=== PATIENT | female | born 1965 | race Caucasian/White ===

== ENCOUNTER 2024-02-06 06:46 | Emergency (ER) | payer OTHER, SELFPAY ==
[2024-02-06 06:55] VITALS: BP 121/66
[2024-02-06 08:00] VITALS: BP 118/55
[2024-02-06 08:35] LABS: % Basophils 1.3 % (0-2); % Eosinophils 3.6 % (0-6); % Immature Granulocytes 0.4 % (0-0.5); % Lymphocytes 37.5 % (20.5-51.1); % Monocytes 7.3 % (1.7-9.3); % Neutrophils 49.9 % (42.2-75.2); Absolute Basophils 0.1 10^3/uL (0-0.2); Absolute Eosinophils 0.2 10^3/uL (0-0.7); Absolute Lymphocytes 1.8 10^3/uL (1.2-3.4); Absolute Monocytes 0.3 10^3/uL (0.1-0.6); Absolute Neutrophils 2.3 10^3/uL (1.4-6.5); Hematocrit 38.2 % (37.0-47.0); Hemoglobin 13.1 g/dL (12.0-16.0); Mean Corp Hgb Conc. 34.3 g/dL (33.0-37.0); Mean Corpuscular Hgb 28.2 pg (27.0-31.0); Mean Corpuscular Volume 82.2 fL (81.0-99.0); Nucleated Red Blood Cells % 0 %; Platelet Count 271 10^3/uL (130-400); Red Blood Cell Count 4.65 10^6/uL (4.20-5.40); Red Cell Dist. Width 13.2 % (11.5-14.5); White Blood Cell Count 4.7 10^3/uL (4.8-10.8)
[2024-02-06 08:46] LABS: ALT (SGPT) 27 U/L (0-35); AST (SGOT) 23 U/L (14-36); Albumin 4.4 g/dl (3.5-5.0); Alkaline Phosphatase 72 U/L (38-126); Blood Urea Nitrogen 14 mg/dl (7-17); Calcium 9.6 mg/dl (8.4-10.2); Carbon Dioxide 28 mmol/L (22-30); Chloride 104 mmol/L (98-107); Glucose 100 mg/dl (70-99); Potassium 4.5 mmol/L (3.5-5.1); Sodium 139 mmol/L (135-145); Total Bilirubin 0.3 mg/dl (0.2-1.3); Total Protein 6.7 g/dl (6.3-8.2); eGFR > 60.00
[2024-02-06 09:07] LABS: Troponin I < 0.012 ng/ml
[2024-02-06 11:25] VITALS: BP 106/59
[2024-02-06 11:35] LABS: Troponin I < 0.012 ng/ml
--- NOTE | 2024-02-06 11:42 | ED.GENMED ---
History of Present Illness
General
Chief Complaint: Musculo-Skeletal Complaint
Source: patient and spouse
Exam Limitations: none
Time Seen by Provider: 02/06/24 07:24
Travel History
Have you had any contact with someone who has COVID-19?: No
Do you have any symptoms of coronavirus? Fever > 100 degrees, chills, cough, shortness of breath, sore throat, loss of taste or smell, muscle aches, or headache?: No
History of Present Illness
History of Present Illness:
58-year-old female who presents with back pain rating to her left arm. Patient states the symptoms began last night. The patient blames it on an antibiotic she was recently started on. She was seen by the medical team at her work at [email or web address]
on Wednesday. She then got a call back due to 'thickening of the airways' and put on azithromycin. Patient states that after taking the first dose she felt relatively okay but after second dose developed back pain and left arm radiation. No chest
pain. No shortness of breath. No fevers. No hemoptysis. No leg swelling. Patient suspects it is related to the medication. She states she has been very sensitive to medications recently.
Past History
Past History
ED Past Medical History: Hypercholesterolemia and Hypothyroidism
ED Past Surgical History: Tonsilectomy and Other (Thyroidectomy)
Social History
Tobacco: Non-smoker
Drug: None
Personal:
Living: with family
Employment: Employed
Family History
Family History: Other (Noncontributory)
Phy Exam
Physical Exam
Physical Exam:
CONSTITUTIONAL Patient alert and oriented to person, place and time. Well-appearing. Vital signs reviewed.
HEAD atraumatic, normocephalic.
EYES eyelids normal to inspection, P Extraocular muscles intact, Conjunctiva normal, Sclera normal.
NECK normal range of motion, Trachea midline, no jugular venous distention.
RESPIRATORY CHEST No respiratory distress noted, Chest expansion equal, Bilateral breath sounds clear.
CARDIOVASCULAR regular rate and rhythm, Heart sounds normal.
ABDOMEN abdomen nontender, Bowel sounds normal. No distention.
BACK normal inspection, no obvious deformities, no focal tenderness noted
UPPER EXTREMITY range of motion normal, Motor strength normal, no cyanosis, no edema.
LOWER EXTREMITY range of motion normal, Motor strength normal, no cyanosis, no edema.
NEURO Speech normal, No focal motor deficits, La coma scale 15, Memory normal, Cranial Nerves intact to screening exam.
SKIN skin warm, dry, and normal in color.
PSYCHIATRIC patient oriented to person place and time, Normal affect.
Course
Orders/Labs/Results
Orders:
Orders
02/06/24 07:01
Electrocardiogram (*1) Urgent
Reason for Study: Other
Other Reason for Exam: left posterior shoulder pain
EKG- Treatment ONCE
02/06/24 08:08
CR Chest - 2 Views Urgent
Comment:
Reason For Exam: cp
02/06/24 08:19
Complete Blood Count/With Diff Urgent
Comprehensive Metabolic Panel Urgent
Troponin I Urgent
02/06/24 11:06
Troponin I Urgent
Abnormal Lab Results
02/06/24
08:19
WBC 4.7 L 10^3/uL
(4.8-10.8)
MPV 11.0 H fL
(7.4-10.4)
Glucose 100 H mg/dl
(70-99)
02/06/24 08:19
02/06/24 08:19
Vital Signs
Initial and Last Documented VS:
Initial Vital Signs
Temp Pulse Resp BP Pulse Ox
98.7 F 57 16 121/66 99
02/06/24 06:55 02/06/24 06:55 02/06/24 06:55 02/06/24 06:55 02/06/24 06:55
Last Documented Vital Signs
Temp Pulse Resp BP Pulse Ox
98.7 F 56 14 118/55 99
02/06/24 06:55 02/06/24 11:25 02/06/24 11:25 02/06/24 08:00 02/06/24 08:15
MDM/Problems Addressed
MDM/Problems Addressed:
Radiculopathy, back pain, possible medication reaction
*Radiology
Radiology exam reviewed: preliminary read by ED provider and radiology read reviewed
*Pulse Oximetry
Patient hypoxic: no
*EKG
Interpreted by ED Provider?: Yes
Interpretation: normal
Rate: bradycardiac
Rhythm: sinus
[place]: normal axis
Interval: normal interval
QRS Pattern: normal QRS
Ischemia: no ischemia
*Pick Up Driver Interpretation
Rate: bradycardiac
Interpretation: normal
Rhythm: sinus
*Critical Care Note
Total Time (30-74mins, 75-104mins- exclusive of procedures): Not Applicable
Data Reviewed
Source: patient
Prescriptions/Medications Considered But Not Given:
Consider CT but no clinical concern for dissection or pulmonary embolism
Patient Management
Escalation/DeEscalation of care consider admission/obs:
Patient appears well. Suspect radiculopathy given back pain into the left upper extremity. Troponin x 2 unremarkable. Okay for discharge and outpatient follow-up. Doubt related to medication but no evidence patient requires azithromycin at this
time as her symptoms have resolved.
ED Attending Note
-
Portions of this chart may have been created with voice recognition software.� Occasional wrong word or��sound alike� substitutions may have occurred due to the inherent limitations of voice recognition software.
Discharge Plan
Departure
Patient Disposition: Home (Routine Discharge)
Date of Disposition: 02/06/24
Time of Disposition: 11:44
Patient with high blood pressure during this ER visit?: No
Discharge Problem:
Back pain, Radiculopathy
Instructions: Radiculopathy (DC)
Referrals:
Tim Rossi MD [Family Provider] -
Activity Restrictions/Additional Instructions:
Please stop your antibiotics. Return immediately for chest pain, shortness of breath, worsening symptoms, fevers or any other concerns. Please see your doctor in the next 2 to 3 days for follow-up and reevaluation.
Interventions
Interventions:
*Risk Screen - Suicide Last Done: 02/06/24 08:21
*General Assessment Last Done: 02/06/24 08:21
*Neglect/Abuse Screening Last Done: 02/06/24 08:21
*ED COVID-19 Vaccine History Last Done: 02/06/24 08:21
ED-Musculoskeletal Assessment Last Done: 02/06/24 08:27
Discharge Date and Time
Print Language: PASHTO
== END 2024-02-06 12:05 | disposition home or self-care (01) ==
LOC: EMR 06:46
PROVIDERS: EMERGENCY PHYSICIAN Emergency Medicine; FAMILY PHYSICIAN Family Medicine
DX: M54.9 Dorsalgia, unspecified (principal); M54.10 Radiculopathy, site unspecified; E78.00 Pure hypercholesterolemia, unspecified; E03.9 Hypothyroidism, unspecified
CPT/HCPCS: 99283; 71046; 80053; 84484; 85025; 93005